=== PATIENT | female | born 1970 | race Caucasian/White ===

== ENCOUNTER → 2017-09-08 | Outpatient (CLI) | payer MEDICAID | LOC: FIMAGING 07:34 | PROVIDERS: ATTEND Physician Assistant | DX: Z12.31 Encounter for screening mammogram for malignant neoplasm of breast (principal); N64.4 Mastodynia | CPT/HCPCS: G0202 ==

== ENCOUNTER 2018-03-07 10:49 | Emergency (ER) | payer MEDICAID ==
[2018-03-07 11:26] LABS: PLATELET COUNT 219 10^3/uL (150-400)
--- NOTE | 2018-03-07 11:34 | EDPHY ---
General Time Seen by Provider: 03/07/18 11:12 Narrative: CHIEF COMPLAINT: Abdominal pain HISTORY OF PRESENT ILLNESS: Patient presents with complaints of right upper quadrant abdominal pain. This has been present for 2-3 days. It is always after she eats a meal. Particularly worse after she eats meat or a spicy meal. Some nausea but no vomiting. No fevers or chills. No generalized abdominal pain the symptoms improve as she refrain from eating. No trauma or injury. She may have had some discoloration of her stools at times but there is no blood in it. She was evaluated clinically prior to arrival at an urgent care. No laboratory studies or imaging performed. They recommended that she present to our emergency department for the possibility of imaging. No other associated complaints or modifying factors. REVIEW OF SYSTEMS: Ten systems reviewed and are negative unless otherwise noted in the HPI PCP: [facility] SPECIALISTS: None PAST MEDICAL HISTORY: Uncomplicated PAST SURGICAL HISTORY: No recent surgeries. No abdominal surgeries SOCIAL HISTORY: Nonsmoker. Works as a caregiver. Lives independently locally FAMILY HISTORY: Noncontributory EXAMINATION General Appearance: Alert, no distress Head: normocephalic, atraumatic Eyes: Pupils equal and round, no conjunctival pallor or injection ENT, Mouth: Mucous membranes moist. Airway patent Neck: Normal inspection, supple, non-tender Respiratory: Lungs are clear to auscultation Cardiovascular: Regular rate and rhythm. No murmur Gastrointestinal: Abdomen is soft and nondistended. There is mild right upper quadrant tenderness. No palpable masses. No guarding. No distention. No tympany. Neurological: A&O, nonfocal Skin: Warm and dry, no rash no petechiae or purpura. Extremities: Nontender, no pedal edema Psychiatric: Mood and affect normal DIFFERENTIAL DIAGNOSES: Including but not limited to cholelithiasis, choledocholithiasis, cholecystitis , biliary dyskinesia, pancreatitis MDM: 11:40 a.m. Right upper quadrant and epigastric postprandial pain over the past 2 weeks. Abdominal exam is benign with mild right upper quadrant tenderness. Her vital signs are within normal limits. She is in no acute distress. I have ordered laboratory studies and ultrasound. She is NPO above 7:00 a.m. 12:20 p.m. Chemistries unremarkable including all for liver function test. Notified by radiologist Dr. Cormier. Ultrasound of the right upper quadrant reveals no abnormalities of the gallbladder or ductal system. He recommends a outpatient HIDA scan if clinically indicated. 12:25 p.m. Patient re-evaluated. I discussed laboratory studies which are all within normal limits. I discussed the ultrasound. I discussed the likely need for a HIDA scan on an outpatient basis. We discussed discharge home with clear liquid diet and follow up with primary care physician for the imaging. I also recommended that she discuss her elevated blood pressure reading with her primary care physician although this was asymptomatic. We discussed ED precautions for any return of pain, fever, vomiting, inability to tolerate intake by mouth. She is comfortable with this plan and discharged home stable condition. SUPERVISION: Patient was independently examined, but I discussed the case with my secondary supervising physician Dr. Owens - Objective Vital Signs: Initial Vital Signs Temperature (C) 98.1 F 03/07/18 11:09 Heart Rate 73 03/07/18 11:09 Respiratory Rate 18 03/07/18 11:09 Blood Pressure 185/82 H 03/07/18 11:09 O2 Sat (%) 93 03/07/18 11:09 O2 Delivery Mode Room Air Allergies/Adverse Reactions: No Known Allergies Allergy (Unverified 04/15/17 20:18) Home Medications: Medication Instructions Recorded oxyCODONE HCL/ACETAMINOPHEN 1 each PO Q4-6PRN PRN #7 tablet 03/07/18 [Percocet 5-325 mg Tablet] Laboratory Results: Laboratory Results 03/07/18 11:20 03/07/18 11:20 Medications Given: Discontinued Medications Sodium Chloride (Ns) 1,000 mls @ 0 mls/hr IV EDNOW ONE; Wide Open PRN Reason: Protocol Stop: 03/07/18 11:42 Last Admin: 03/07/18 12:39 Dose: 1,000 mls Departure - Departure Disposition: Home, Routine, Self-Care Clinical Impression: Abdominal pain, acute, Elevated blood pressure reading Abdominal pain Qualifiers: Abdominal location: right upper quadrant Qualified Code(s): R10.11 - Right upper quadrant pain Condition: Good Instructions: Biliary Colic (ED), Low Fat Diet (ED), Clear Liquid Diet (ED), Acute Abdominal Pain (ED), Biliary Dyskinesia (DC) Additional Instructions: 1. Clear liquid diet recommended 2. Contact your primary care physician to discuss the possibility of a HIDA scan 3. ED precautions for return of pain, nausea vomiting, fever, chills 4. Discussed your elevated blood pressure reading with your physician upon follow-up Referrals: Cindy Uriostegui PA [Primary Care Provider] - As per Instructions Prescriptions: oxyCODONE HCL/ACETAMINOPHEN [Percocet 5-325 mg Tablet] 1 each PO Q4-6PRN PRN #7 tablet PRN Reason: Pain, Breakthrough
[2018-03-07] MEDS ORDERED: NS 1,000 ML IV ONE (11:41)
[2018-03-07 12:39] VITALS: BP 140/86
== END 2018-03-07 12:59 | disposition home or self-care (01) ==
DX: R10.11 Right upper quadrant pain (principal); R03.0 Elevated blood-pressure reading, without diagnosis of hypertension; E86.9 Volume depletion, unspecified

== ENCOUNTER → 2018-03-30 | Outpatient (CLI) | payer MEDICAID | LOC: FIMAGING 13:11 | PROVIDERS: ATTEND Physician Assistant | DX: R10.9 Unspecified abdominal pain (principal) | CPT/HCPCS: 78227; A9537 ==

== ENCOUNTER 2018-04-15 04:36 | Observation (INO) | payer MEDICAID ==
[2018-04-15] MEDS ORDERED: NS 1,000 ML IV ONE (04:42)
--- NOTE | 2018-04-15 04:59 | EDPHY ---
H & P Stated Complaint: Dizzy, feels like heart is stopping Time Seen by Provider: 04/15/18 04:57 HPI/ROS: HPI CHIEF COMPLAINT: Lightheadedness, dizziness, left-sided chest discomfort, palpitations HISTORY OF PRESENT ILLNESS: This patient very pleasant 47-year-old female, does have a history of PTSD and anxiety, she presents to the emergency room with left-sided intermittent chest discomfort over the past week. She distally reports she has been getting lightheaded really easily and sometimes dizzy. But main complaint lightheadedness. Additionally she reports some dyspnea on exertion. As well as palpitations. She states when she goes to sleep at night she feels like her heart is in irregular rhythm and having significant pauses where she feels like she is going to . She states this been going on for all weeks she decided come the emergency room around 430 in the morning because she could not sleep last night she was afraid to go to sleep but she thought her heart was going to stop. Today she had some left-sided chest discomfort that she describes a squeezing sensation sometimes goes up her right neck. Denies pleuritic pain. Denies history of PE. Denies history of cardiovascular disease. Upon arrival to the emergency room she is somewhat anxious but denies any chest discomfort. Past Medical History: PTSD and anxiety Past Surgical History: Jaw surgery Social History: Denies daily use of drugs alcohol tobacco. Family History: Significant for hypertension but otherwise no premature heart disease [place] or stroke. ROS REVIEW OF SYSTEMS: A comprehensive 10 point review of systems is otherwise negative aside from elements mentioned in the history of present illness. Exam Constitutional appears somewhat anxious triage nursing summary reviewed, vital signs reviewed, awake/alert. Eyes normal conjunctivae and sclera, EOMI, PERRLA. HENT normal inspection, atraumatic, moist mucus membranes, no epistaxis, neck supple/ no meningismus, no raccoon eyes. Respiratory clear to auscultation bilaterally, normal breath sounds, no respiratory distress, no wheezing. Cardiovascular rate normal, regular rhythm, no murmur, no edema, distal pulses normal. Gastrointestinal soft, non-tender, no rebound, no guarding, normal bowel sounds, no distension, no pulsatile mass. Genitourinary no CVA tenderness. Musculoskeletal no midline vertebral tenderness, full range of motion, no calf swelling, no tenderness of extremities, no meningismus, good pulses, neurovascularly intact. Skin pink, warm, & dry, no rash, skin atraumatic. Neurologic awake, alert and oriented x 3, AAOx3, moves all 4 extremities equally, motor intact, sensory intact, CN II-XII intact, normal cerebellar, normal vision, normal speech. Psychiatric normal mood/affect. Heme/Lymph/Immune no lymphadenopathy. Differential diagnosis includes but is not limited to: ACS, atypical chest pain , pneumothorax, pneumonia, pulmonary embolism, aortic dissection, congestive heart failure, tumor, musculoskeletal pain, esophageal pain, GERD, peptic ulcer disease, pancreatitis Medical Decision Making: Plan for this patient IV establishment with blood draw , obtain EKG, troponin, chest x-ray, check electrolytes, D-dimer, rule out acute coronary syndrome. Placed on campus monitor for cardiac arrhythmia. Re-evaluation: EKG interpretation by me on record in [facility] system. Impression time of EKG 4:42 a.m., this is sinus rhythm rate of 73 there are T-wave abnormalities lead to 3 AVF. Subtle T-wave abnormalities V4 V5. No ST elevation. No significant ST depression. ED x-ray chest one view: Negative for acute cardiopulmonary disease. Image interpreted by myself. 0642: Blood work reviewed. Negative troponin negative D-dimer. Patient does have an abnormal EKG T-wave inversions in the inferior leads as well as biphasic V4 V5. No ST elevation. Given the patient's abnormal EKG and symptoms patient be admitted to the hospitalist service for further cardiac evaluation and rule out. Here in the emergency room at this time 7:11 a.m. She does not have any chest pain or shortness of breath she is resting comfortably. Vital signs are stable she is hemodynamically stable. Troponin noted to be negative D-dimer negative. Chest x-ray unremarkable EKG with some T-wave abnormalities in subtle ST depression. Spoke with the hospitalist service Dr. Martinez is agreeable to admit. Patient is agreeable on admission. Source: Patient - Personal History LMP (Females 10-55): Post Menopausal Current Tetanus/Diphtheria Vaccine: Unsure Current Tetanus Diphtheria and Acellular Pertussis (TDAP): Unsure - Medical/Surgical History Hx Asthma: No Hx Chronic Respiratory Disease: No Hx Diabetes: No Hx Cardiac Disease: No Hx Renal Disease: No Hx Cirrhosis: No Hx Alcoholism: No Hx HIV/AIDS: No Hx Splenectomy or Spleen Trauma: No Other PMH: jaw surgery - Social History Smoking Status: Never smoked Constitutional: Initial Vital Signs Temperature (C) 36.6 C 04/15/18 04:42 Heart Rate 77 04/15/18 04:42 Respiratory Rate 18 04/15/18 04:42 Blood Pressure 153/102 H 04/15/18 04:42 O2 Sat (%) 94 04/15/18 04:42 O2 Delivery Mode Room Air O2 (L/minute) 1 Allergies/Adverse Reactions: No Known Allergies Allergy (Verified 04/15/18 09:41) Home Medications: Medication Instructions Recorded Herbals/Supplements -Info Only 1 ea PO DAILY 04/15/18 Melatonin [Melatonin 3 MG (*)] 3 mg PO HS PRN 04/15/18 Medical Decision Making - Data Points Laboratory Results: Laboratory Results 04/15/18 04:45 04/15/18 04:45 Medications Given: Discontinued Medications Sodium Chloride (Ns) 1,000 mls @ 0 mls/hr IV EDNOW ONE; Wide Open PRN Reason: Protocol Stop: 04/15/18 04:43 Last Admin: 04/15/18 04:44 Dose: 1,000 mls Departure - Departure Disposition: [facility] Acute Clinical Impression: Abnormal EKG Chest pain Qualifiers: Chest pain type: unspecified Qualified Code(s): R07.9 - Chest pain, unspecified Condition: Fair
--- NOTE | 2018-04-15 05:07 | CPEKG ---
Heart Rate: 73 RR Interval: 822 P-R Interval: 140 QRSD Interval: 86 QT Interval: 400 QTC Interval: 441 P [place]: 23 QRS [place]: -2 T Wave [place]: -37 EKG Severity - NORMAL ECG - EKG Impression: SINUS RHYTHM Electronically Signed By: Alex Petersen 15-Apr-2018 07:22:47
[2018-04-15 05:11] LABS: PLATELET COUNT 210 10^3/uL (150-400)
[2018-04-15 05:17] LABS: INR 0.95 (0.83-1.16); PROTIME(PATIENT) 12.9 SEC (12.0-15.0)
[2018-04-15 05:23] LABS: CREATINE KINASE 37 IU/L (0-156)
[2018-04-15] MEDS ORDERED: LORazepam 0.5 MG TAB PO PRN (08:43)
[2018-04-15] MEDS ORDERED: ONDANSETRON 4 MG/2 ML VIAL IVP PRN (08:43)
[2018-04-15] MEDS ORDERED: oxyCODONE IR 5 MG TAB PO PRN (08:43)
[2018-04-15] MEDS ORDERED: PROMETHAZINE HCL 25 MG/ML INJ IVP PRN (08:43)
[2018-04-15] MEDS ORDERED: ONDANSETRON DISINTEGRATING 4 MG TAB PO PRN (08:43)
[2018-04-15] MEDS ORDERED: ACETAMINOPHEN 325 MG TAB PO PRN (08:43)
--- NOTE | 2018-04-15 09:46 | PDGENHP ---
History and Physical - Chief Complaint near syncope, chest pain, palpitations - History of Present Illness 47 yo F with no significant PMH admitted with 1 week of intermittent near syncopal episodes, chest pain and palpitations. She notes the symptoms initially began while gardening, during which time she felt several times as if she might faint followed by an episode of chest tightness. This resolved on its own but then later in the week she had several episodes at night where she was awakened with "fibrillations" or "fluttering" in the chest. She states this has happened in the past as well, for at least several years, but she has never had it worked up. Last night, these sensations were severe and associated with the feeling that her heart was stopping periodically, similar to what she would describe as an "apneic" episode. These sensations were so severe that she was unable to sleep all night and felt sure she was dying. She eventually decided to come to the ER for further evaluation. 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 She noted during the interview that even talking about her boyfriend recreated some of the feelings she was having at home. She also has concerns that she needs to be discharged later today as she has a meeting scheduled first thing tomorrow morning. History Information - Allergies/Home Medication List Allergies/Adverse Reactions: No Known Allergies Allergy (Verified 04/15/18 09:41) Home Medications: Herbals/Supplements -Info Only 1 ea PO DAILY 04/15/18 [Last Taken Unknown] Melatonin [Melatonin 3 MG (*)] 3 mg PO HS PRN 04/15/18 [Last Taken 04/14/18] I have personally reviewed and updated: family history, medical history, social history, surgical history - Past Medical History no pertinent PMH - Surgical History Additional surgical history: jaw surgery - Family History Positive for: hypertension (both parents) - Social History Smoking Status: Never smoked Alcohol Use: None Drug Use: None Additional social history: single, no children, going through a traumatic breakup Review of Systems Review of Systems: ROS: 10pt was reviewed & negative except for what was stated in HPI & below Physical Exam Physical Exam: Temp Pulse Resp BP Pulse Ox 36.9 C 63 16 130/85 H 93 04/15/18 07:54 04/15/18 07:54 04/15/18 07:54 04/15/18 07:54 04/15/18 07:54 Constitutional: no apparent distress, appears nourished Eyes: PERRL, anicteric sclera Ears, Nose, Mouth, Throat: moist mucous membranes, hearing normal Cardiovascular: regular rate and rhythym, no murmur, rub, or gallop, No edema Respiratory: no respiratory distress, no rales or rhonchi, clear to auscultation Gastrointestinal: normoactive bowel sounds, soft, non-tender abdomen Genitourinary: no bladder tenderness Skin: warm, normal color Musculoskeletal: full muscle strength Neurologic: AAOx3 Psychiatric: interacting appropriately, not anxious, not encephalopathic Lab Data & Imaging Review 04/15/18 04:45 04/15/18 04:45 WBC 6.47 10^3/uL (3.80-9.50) 04/15/18 04:45 RBC 4.59 10^6/uL (4.18-5.33) 04/15/18 04:45 Hgb 14.5 g/dL (12.6-16.3) 04/15/18 04:45 Hct 40.8 % (38.0-47.0) 04/15/18 04:45 MCV 88.9 fL (81.5-99.8) 04/15/18 04:45 MCH 31.6 pg (27.9-34.1) 04/15/18 04:45 MCHC 35.5 g/dL (32.4-36.7) 04/15/18 04:45 RDW 12.7 % (11.5-15.2) 04/15/18 04:45 Plt Count 210 10^3/uL (150-400) 04/15/18 04:45 MPV 10.2 fL (8.7-11.7) 04/15/18 04:45 Neut % (Auto) 55.5 % (39.3-74.2) 04/15/18 04:45 Lymph % (Auto) 33.5 % (15.0-45.0) 04/15/18 04:45 Mclennan % (Auto) 8.8 % (4.5-13.0) 04/15/18 04:45 Eos % (Auto) 1.5 % (0.6-7.6) 04/15/18 04:45 Baso % (Auto) 0.5 % (0.3-1.7) 04/15/18 04:45 Nucleat RBC Rel Count 0.0 % (0.0-0.2) 04/15/18 04:45 Absolute Neuts (auto) 3.59 10^3/uL (1.70-6.50) 04/15/18 04:45 Absolute Lymphs (auto) 2.17 10^3/uL (1.00-3.00) 04/15/18 04:45 Absolute Monos (auto) 0.57 10^3/uL (0.30-0.80) 04/15/18 04:45 Absolute Eos (auto) 0.10 10^3/uL (0.03-0.40) 04/15/18 04:45 Absolute Basos (auto) 0.03 10^3/uL (0.02-0.10) 04/15/18 04:45 Absolute Nucleated RBC 0.00 10^3/uL (0-0.01) 04/15/18 04:45 Immature Gran % 0.2 % (0.0-1.1) 04/15/18 04:45 Immature Gran # 0.01 10^3/uL (0.00-0.10) 04/15/18 04:45 PT 12.9 SEC (12.0-15.0) 04/15/18 04:45 INR 0.95 (0.83-1.16) 04/15/18 04:45 APTT 27.6 SEC (23.0-38.0) 04/15/18 04:45 D-Dimer < 0.27 ug/mLFEU (0.00-0.50) 04/15/18 04:45 Sodium 142 mEq/L (135-145) 04/15/18 04:45 Potassium 4.2 mEq/L (3.3-5.0) 04/15/18 04:45 Chloride 107 mEq/L (97-110) 04/15/18 04:45 Carbon Dioxide 24 mEq/l (22-31) 04/15/18 04:45 Anion Gap 11 mEq/L (8-16) 04/15/18 04:45 BUN 8 mg/dL (7-23) 04/15/18 04:45 Creatinine 0.7 mg/dL (0.6-1.0) 04/15/18 04:45 Estimated GFR > 60 04/15/18 04:45 Glucose 89 mg/dL (70-100) 04/15/18 04:45 Calcium 8.8 mg/dL (8.5-10.4) 04/15/18 04:45 Magnesium 2.2 mg/dL (1.6-2.3) 04/15/18 04:45 Total Bilirubin 1.0 mg/dL (0.1-1.4) 04/15/18 04:45 Conjugated Bilirubin 0.4 mg/dL (0.0-0.5) 04/15/18 04:45 Unconjugated Bilirubin 0.6 mg/dL (0.0-1.1) 04/15/18 04:45 AST 27 IU/L (14-46) 04/15/18 04:45 ALT 35 IU/L (9-52) 04/15/18 04:45 Alkaline Phosphatase 53 IU/L (38-126) 04/15/18 04:45 Creatine Kinase 37 IU/L (0-156) 04/15/18 04:45 CK-MB (CK-2) Fraction < 0.22 ng/mL (0.00-4.55) 04/15/18 04:45 Troponin I < 0.012 ng/mL (0.000-0.034) 04/15/18 08:56 NT-Pro-B Natriuret Pep 40 pg/mL (0-125) 04/15/18 04:45 Total Protein 6.8 g/dL (6.3-8.2) 04/15/18 04:45 Albumin 4.1 g/dL (3.5-5.0) 04/15/18 04:45 Lipase 18 IU/L (23-300) L 04/15/18 04:45 Beta HCG, Qual NEGATIVE 04/15/18 04:45 Visualized and Interpreted Chest x-ray results: Yes Chest X-Ray results: normal Visualized and Interpreted EKG results: Yes EKG Interpretation: Positive for: normal sinsus rhythm Assessment & Plan Assessment: Abnormal EKG (Acute) Chest pain (Acute) 47 yo F with no pmh and no RF for cardiac disease presenting with atypical chest pain and palpitations # atypical chest pain: low pre test probability for ACS, initial w/u including trop x 2, ecg all negative for ischemia. No e/o CHF. Labs otherwise normal including LFTs, lipase, wbc. Will get echo given pre syncope associated with chest pain and if this is unremarkable will likely dc for op f/u. Suspect this is stress/anxiety related given recurrence of sxs when talking about her breakup. # palpitations: patient concerned she is having fibrillations and possibly a fib , has been present on and off x years but more frequently in the past week. Nothing so far on tele or ecg. Recommend op holter or event monitor after dc if nothing found while in house # pre syncope: in the setting of exertion and being outside in the heat and with change of position--suspect orthostatic hypotension, however given associated chest pain will get echocardiogram to r/o structural disease # stress/anxiety: patient meditates and has other methods to manage her stress, encouraged continued work on that # observation status Patient new to my care. Old records reviewed/summarized as above.
[2018-04-15 15:29] VITALS: BP 138/88
--- NOTE | 2018-04-15 15:29 | ECHO ---
[email or web address] [address] [address] Main: [phone] Fax: Transthoracic Echocardiogram Name: GRACIA WHATLEY MR#: [id number] Study Date: 04/15/2018 Study Time: 01:41 PM Date of : 1970 Age: 47 year(s) Height: 162.6 cm (64 in.) Weight: 80.74 kg (178 lb.) BSA: 1.86 m2 Gender: Female Examination: Echo Indication: near syncope, Chest Pain Image Quality: Adequate Contrast: Requested by: Klever Yao BP: 129 mmHg/81 mmHg Heart Rate: Rhythm: Indication: near syncope, Chest Pain Procedure Staff [employer] Worker: Kavya Anderson RDCS Reading Physician: Requesting Provider: Measurements: Chambers Valvular Assessment AV/MV Valvular Assessment TV/PV Normal Normal Normal Name Value Range Name Value Range Name Value Range Ao Miroslava (2D): 2.7 cm (1.4 cm-2.6 AV meanP mmHg ( - ) TR Vmax: 2.32 mm/s ( - ) cm) HERMES (VTI): 1.7 cm ( - ) TR PGmax: 22 mmHg ( - ) IVSd (2D): 0.8 cm (0.6 cm-1.1 MV E Vmax: 0.66 m/s ( - ) syst. PAP: 27 mmHg ( - ) cm) MV A Vmax: 0.54 m/s ( - ) PV Vmax: 0.81 m/s (0.6 m/s-0.9 LVDd (2D): 4.6 cm (3.9 cm-5.3 MV E/A: 1.22 ( - ) m/s) cm) MV PHT: 0.067 s ( - ) PV PGmax: 3 mmHg ( - ) LVDs (2D): 2.9 cm (2.1 cm-4 cm) MVA (PHT): 3.3 s ( - ) LVPWd (2D): 0.9 cm ( - ) LVOTd 1.9 cm 1.9 cm mm LVEF (BP): 66 % (>=55 %) RVDd(2D): 2.7 cm (1.9 cm-3.8 cmmm) Continued Measurements: Chambers Valvular Assessment AV/MV Valvular Assessment TV/PV Name Value Name Value Name Value LADs: 3.3 cm MV DecTime: 222 m/s CVP (est.): 5 mmHg LADs Lon.3 cm MV E' Septal: 0.07 m/s LA Area: 15.6 cm2 MV E/E' Septal: 9.50 LA Volume: 43 ml MV E/E' Lateral: 6.10 LA Volume Index: 23.1 ml/m2 RA Area: 14.4 cm2 Additional Vessels Patient: GRACIA WHATLEY Study Date: 04/15/2018 Page 1 of 2 01:41 PM Name Value Ao Ascendin.1 cm Inferior Vena Cava: 0.9 cm Findings: Left Ventricle: Normal size left ventricle. No LV hypertrophy. Normal global systolic LV function. EF is 66 %. No regional wall motion abnormality. Normal diastolic LV function. Right Ventricle: Normal size right ventricle. Normal RV function. Left Atrium: The left atrium is normal in size. Right Atrium: The right atrium is normal in size. Mitral Valve: The mitral valve is normal in appearance and function. Mild mitral valve regurgitation is present. No mitral stenosis is present. Aortic Valve: The aortic valve is normal in appearance and function. There is no significant aortic valve regurgitation. No aortic valve stenosis is present. Tricuspid Valve: The tricuspid valve is normal in appearance and function. Mild tricuspid regurgitation is present. The pulmonary artery pressure is normal. Right ventricular systolic pressure measures 27mmHg. Pulmonic Valve: The pulmonic valve is normal in appearance and function. There is no pulmonic regurgitation seen. Aorta: The aorta is normal. Normal size aortic root measuring 2.7 cm. Normal size ascending aorta measuring 3.1 cm. IVC: The IVC is normal sized. Pericardium: No pericardial effusion. No pleural effusion. (No Signature Object) Patient: GRACIA WHATLEY Study Date: 04/15/2018 Page 2 of 2 01:41 PM [id number]
== END 2018-04-15 18:00 | disposition home or self-care (01) ==
LOC: F2W 08:00
PROVIDERS: ADMIT Student in an Organized Health Care Education/Training Program; ATTEND Student in an Organized Health Care Education/Training Program
DX: R42 Dizziness and giddiness (principal); R07.9 Chest pain, unspecified; R00.2 Palpitations; I10 Essential (primary) hypertension
CPT/HCPCS: 71045; 93005; 93306; G0378